=== PATIENT | female | born 1965 | race Caucasian/White ===

== ENCOUNTER 2022-08-18 09:32 | Outpatient (CLI) | payer OTHER | END 2022-08-18 09:47 | disposition home or self-care (01) | LOC: MAMO-SONO 09:32 | PROVIDERS: ATTEND Student in an Organized Health Care Education/Training Program | DX: N60.11 Diffuse cystic mastopathy of right breast (principal); N60.12 Diffuse cystic mastopathy of left breast ==

== ENCOUNTER 2023-02-06 11:31 | Inpatient (IN) | payer OTHER ==
[~2023-02-06] VITALS: Ht 163.8 cm; Wt 70.3 kg
[~2023-02-06 11:31] MED LIST: COZAAR25 MG PO; HYDROCHLOROTHIA25 MG PO
[2023-02-13] MEDS ORDERED: HYDROCHLOROTH12.5 MG PO (09:04)
== END 2023-02-15 17:57 | disposition home or self-care (01) | DRG 743 ==
LOC: O/R 02-13 05:38 → OB/GYN 02-13 07:00 → SURH 02-13 12:30 → OB/GYN 02-13 12:30
PROVIDERS: ADMIT Student in an Organized Health Care Education/Training Program; ATTEND Student in an Organized Health Care Education/Training Program
PROC: 0UT64ZZ Resection of Left Fallopian Tube, Percutaneous Endoscopic Approach (ICD-10-PCS; 2023-02-13)
PROC: 0UT94ZZ Resection of Uterus, Percutaneous Endoscopic Approach (ICD-10-PCS; principal; 2023-02-13 07:00)
DX: D25.1 Intramural leiomyoma of uterus (principal); D25.0 Submucous leiomyoma of uterus; D25.2 Subserosal leiomyoma of uterus; Z20.822 Contact with and (suspected) exposure to COVID-19

== ENCOUNTER 2024-04-10 12:00 | Outpatient (CLI) | payer OTHER ==
[~2024-04-10 12:00] MED LIST changes: +HYDROCHLOROTH12.5 MG PO
== END 2024-04-10 12:06 | disposition home or self-care (01) ==
LOC: RAD 12:00
PROVIDERS: ATTEND Orthopaedic Surgery Sports Medicine
DX: M25.561 Pain in right knee (principal); M25.562 Pain in left knee